=== PATIENT | female | born 1985 | race African-American/Black ===

== ENCOUNTER 2017-03-11 12:28 | Inpatient (IN) ==
[2017-03-11] MEDS: TORADOL IV SCH ×2 (16:45→23:43)
[2017-03-11 17:21] LABS: MANUAL DIFF NEEDED? NO
[2017-03-11 17:40] LABS: BASO% 0.1 % (0.0-0.8); EOS# 0.46 X1000 (0.0-0.7); EOS% 6.6 % (0.0-10.0); HEMATOCRIT 35.5 % (37.0-47.0); HEMOGLOBIN 11.3 g/dL (12.0-16.0); LYMPH# 2.08 X1000 (1.2-3.4); LYMPH% 30.1 % (20.5-51.1); MCH 27.8 PG (27-31); MCHC 31.8 g/dL (33-37); MCV 87.2 FL (81-99); MONO# 0.38 X1000 (0.11-0.59); MONO% 5.5 % (1.7-9.3); MPV 11.1 FL (7.4-10.4); NEUT% 57.7 % (42.2-75.2); PLT 286 X1000 (130-400); RBC 4.07 XMIL (4.2-5.4)
[2017-03-11 17:50] LABS: AGAP 6; ALBUMIN 3.6 g/dL (3.5-5.0); ALKALINE PHOSPHATASE 63 U/L (32-104); BUN 10 mg/dL (8-22); CALCIUM 9.3 mg/dL (8.8-10.2); CHLORIDE 104 mmol/L (98-107); COSMO 280; GOT 16 U/L (10-30); GPT 8 U/L (10-36); POTASSIUM 3.8 mmol/L (3.5-5.1); SODIUM 141 mmol/L (136-145); TCO2 31 mmol/L (25-35); TOTAL BILIRUBIN 0.24 mg/dL (0.20-1.00)
[2017-03-11 18:48] LABS: SED RATE 29 mm/hr (0-20)
[2017-03-11] MEDS ORDERED: BENADRYL IV PRN (19:58)
[2017-03-11] MEDS ORDERED: SOLU-MEDROL IV ONE (19:58)
[2017-03-11] MEDS ORDERED: HEPARIN 25,000 UNITS/D5W 25,000 UNIT/250 ML IV.SOLN IV SCH (20:00)
[2017-03-11] MEDS ORDERED: XARELTO PO SCH (20:00)
[2017-03-11] MEDS: PROTONIX IV SCH (20:57)
[2017-03-11] MEDS ORDERED: SODIUM CHLORIDE 0.9% INJ SCH (21:00)
[2017-03-11] MEDS ORDERED: HEPARIN IV ONE (23:21)
--- NOTE | 2017-03-12 00:58 | HISTORY AND PHYSICAL ---
CHIEF COMPLAINT: Chest pain, shortness of breath, losing hair, joint pains, whelps on the skin, swelling of the right calf 3 weeks ago. HISTORY OF PRESENT ILLNESS: She is a 31-year-old pleasant female, employee of the hospital, who was evaluated 3 weeks ago with right leg swelling with positive D-dimer. Outpatient venous Doppler at [facility] diagnosed a DVT. Patient was started on Xarelto. Since then, she was developing these symptoms. She was seen by Dr. Mcfadden. In my office, she is short of breath. Chest pain reproducible. Diffuse welts, consistent with urticarial lesions. All the joints are hurting, and calf is tender. These symptoms pretty much started after Xarelto. Basically, admitted to the hospital for rule out PE, rule out connective tissue disease, workup for thrombophilia, as well as these allergic urticarial lesions. As a result, a hospital admission was warranted. PAST MEDICAL HISTORY: 1. DVT in the right leg. 2. Alopecia. PAST SURGICAL HISTORY: . MEDICINES: Xarelto 15 twice a day. ALLERGIES: Not known. SOCIAL HISTORY: . One kid. Working in [employer]. Lives in [place]. Smoking half a pack a day. No alcohol. No drug abuse. FAMILY HISTORY: Father is 60 years old, in good health. Mother had blastomycosis. Siblings are pretty healthy. EYEGLASS FITTER HISTORY: 1, para 1. Last menstrual period 03/10/2017. REVIEW OF SYSTEMS: HEENT: Losing hair on the scalp. No oral lesions. No earache. Neck: No goiter. No lymphadenopathy. No bruit. Cardiopulmonary: Chest pain, shortness of breath. No PND. No orthopnea. Gastrointestinal: No GI gastrointestinal symptoms, nausea, vomiting. Genitourinary: No history of hesitancy, frequency. Extremities: Right leg swelling and joint pains. Skin: Rashes described, welts. Neurologic: No focal symptoms or weakness. PHYSICAL EXAMINATION: VITAL SIGNS: Afebrile. Vitals are stable. 5 feet 4, 170 pounds. Pulse oximetry 100% on room air. HEENT: Atraumatic, normocephalic. Minimal hair loss on the back of the neck. Thinning of the hair on the scalp. TMs are normal. Nose and throat within normal limits. Oral cavity is no lesions. Lids are normal. NECK: Supple. No lymphadenopathy. No goiter. CHEST: Bilateral air entry. HEART: Sounds are regular. The pain is reproducible on the left side of the chest. BREAST: Exam deferred. ABDOMEN: Belly is soft, nontender. Good bowel sounds. EXTREMITIES: Right leg is swollen. Joints are slightly inflamed and swollen hands in the diffuse. SKIN: Diffuse welts, consistent with urticaria. NEUROLOGIC: Nonfocal. INVESTIGATIONS: CBC: White cell count 6.9, hematocrit 35, platelets 286,000. Sedimentation rate 29. D-dimer 2.58. SMA-7 normal. Uric acid is normal. Troponin is normal. ProBNP is normal. CRP is high. B12 is normal. ASSESSMENT: A 31-year-old female, admitted to the hospital with a deep venous thrombosis in the right leg. After starting Xarelto, started having these joint pains, alopecia, urticarial lesions. PLAN: 1. Thrombophilia workup, as per Dr. Mcfadden. Rule out connective tissue diseases. 2. Follow up on anti-HERON panel. 3. Urticarial lesions. Questionable allergic reaction to Xarelto. We will discontinue. We will start on IV heparin. In the meantime, we will give IV steroids, Tylenol, and GI prophylaxis with IV Protonix. 4. Atypical chest pain, mostly musculoskeletal. We will get any EKG, chest x- ray, repeat the cardiac enzymes in the morning. 5. Discussed with the patient the plan of care. Also, will get the reports from [facility]. cc: Alejandro Norwood MD MTDD
[2017-03-12] MEDS: TORADOL IV SCH ×4 (05:02→21:28)
[2017-03-12] MEDS: SOLU-MEDROL IV SCH ×3 (05:02→21:28)
--- NOTE | 2017-03-12 06:48 | EKG Report ---
Test Performed on : 03/12/2017 06:07:52 AM Test Reason : cp Blood Pressure : / mmHG Vent. Rate : 070 BPM Atrial Rate : 070 BPM P-R Int : 146 ms QRS Dur : 068 ms QT Int : 394 ms P-R-T Axes : 080 079 066 degrees QTc Int : 425 ms Normal sinus rhythm. with sinus arrhythmia. Early repolarization Normal ECG No previous ECGs available Confirmed by Alberto WILSON, Dave Yang ([id number]) on 03/12/2017 11:39:23 AM
--- NOTE | 2017-03-12 07:36 | Diag Imaging Result Doc PS360 ---
EXAM: CHEST-2 VIEWS HISTORY: hypoxia TECHNIQUE: COMPARISON: 08/05/2013 FINDINGS: The lungs are well expanded. The heart is not enlarged. The vessels are not distended. There are no infiltrates. No pleural effusions. IMPRESSION: No acute abnormality. Electronically signed by Casey Sal 03/12/2017 7:33 AM
[2017-03-12] MEDS ORDERED: HEPARIN IV PRN (08:30)
--- NOTE | 2017-03-12 09:06 | PROGRESS NOTE ---
DATE: 03/12/2017 SUBJECTIVE: The patient's chest pain is improved. No shortness of breath. Skin rashes, urticarial lesions improving. Joint pains are less painful. REVIEW OF SYSTEMS: Otherwise, none reported. PHYSICAL EXAMINATION: Vital Signs: She is afebrile. Vitals are stable. HEENT Examination: Within normal limits. Chest: Clear. Cardiovascular: Heart sounds are regular. Pain is decreased and on the left side of the chest. Urticarial lesions are gone. Right leg is slightly swollen, nonfocal exam. INVESTIGATIONS: Cardiac enzymes were negative. RA factor is negative. Chest x-ray was stable. EKG normal sinus, nothing acute. ASSESSMENT AND PLAN: 1. Chest pain. Costochondritis. Continue NSAIDs. 2. Urticaria, probably from Xarelto based on the history. Continue on IV steroids. 3. Gastrointestinal prophylaxis with IV Protonix. 4. Right leg deep venous thrombosis. Thrombophilia workup is pending. Rule out connective should tissue diseases. On IV heparin. We will change to the Eliquis and we will followup on the labs. LEVEL OF DOCUMENTATION: Was 25 minutes. cc: Alejandro Norwood MD
[2017-03-12] MEDS ORDERED: HEPARIN 25,000 UNITS/D5W 25,000 UNIT/250 ML IV.SOLN IV SCH ×3 (09:18→21:52)
[2017-03-12 11:09] LABS: HEPATITIS PROFILE ACUTE SEE COMMENTS
[2017-03-12] MEDS: PROTONIX IV SCH (21:28)
[2017-03-12] MEDS ORDERED: HEPARIN IV ONE (21:50)
[2017-03-13] MEDS: TORADOL IV SCH (03:33)
[2017-03-13] MEDS: SOLU-MEDROL IV SCH (03:33)
--- NOTE | 2017-03-13 06:39 | Extremity Venous Study ---
PROCEDURE NAME: Venous U/S Right Leg - 03/11/2017 STUDY: Right lower extremity venous duplex study. REFERRING PHYSICIAN: Mirta Norwood MD READING PHYSICIAN: Arnulfo Whitfield MD SHOE CEMENTER: Ronaldo INDICATION: History of DVT in the right leg and there is right leg pain. FINDINGS: There is chronic thrombosis involving the right posterior tibial and peroneal veins. The common femoral, deep femoral, superficial femoral, greater saphenous and popliteal veins appear to be patent and compressible and without thrombus. INTERPRETATION: There is chronic deep vein thrombosis involving the right posterior tibial and peroneal veins. cc: MD Alejandro Carter MD
[2017-03-13] MEDS ORDERED: HEPARIN 25,000 UNITS/D5W 25,000 UNIT/250 ML IV.SOLN IV SCH (07:50)
[2017-03-13 08:06] VITALS: BP 140/72
[2017-03-13 08:39] LABS: URINE MICRO REVIEW NEEDED? NO; URINE SOURCE VOIDED
[2017-03-13 08:49] LABS: BILIRUBIN URINE NEGATIVE (NEGATIVE); BLOOD URINE MODERATE (NEGATIVE); COLOR YELLOW; GLUCOSE URINE NEGATIVE (NEGATIVE); LEUKOCYTES URINE NEGATIVE (NEGATIVE); NITRITE URINE NEGATIVE (NEGATIVE); PH URINE 6.5; PROTEIN URINE 50 mg/dL (NEGATIVE); SP GRAVITY URINE 1.036; TURBIDITY URINE CLEAR (CLEAR); UROBILINOGEN URINE NORMAL (NORMAL)
[2017-03-13 08:50] LABS: UR EPITHELIAL CELLS <10 /HPF (<10); URINE BACTERIA NEGATIVE /HPF; URINE RBC <10 /HPF (<10); URINE WBC <10 /HPF (<10)
--- NOTE | 2017-03-15 10:30 | DISCHARGE SUMMARY ---
ADMISSION DATE: 03/11/2017 DISCHARGE DATE: 03/13/2017 DISCHARGING DIAGNOSIS: Chronic right leg deep venous thrombosis, distal popliteal vein. SECONDARY DIAGNOSES: 1. Alopecia, etiology to be determined. 2. Slightly positive SSA antibody. 3. Urticaria, possibly due to Xarelto. BRIEF HISTORY: Please see the H and P that was done on 03/11/2017. In brief, she is a 31-year- old, pleasant, female working at [employer]. She presented to the hospital after evaluation in my office with chest pain, shortness of breath, hives, and also chronic right DVT diagnosed 3 weeks ago in [facility]. HOSPITAL COURSE: Patient was evaluated for thrombophilia workup by Dr. Mcfadden. Basically, hypercoagulable state as well as connective tissue disease workup. She is telling me that she is developing these hives ever since she has been taking Xarelto. She has diffuse urticarial lesions all over the body. It has been itching. Further workup, slightly elevated sedimentation rate and CRP. Patient was given IV Benadryl, intravenous Pepcid, and IV steroids. These symptoms were much improved. As a part of the chest pain, EKG is normal, cardiac enzymes were normal. This is probably musculoskeletal pain. The rest of the hospital course was uneventful. I believe she allergies to Xarelto. LABORATORIES: CBC: White cell count 6.9, hematocrit 35, platelets 286,000. D- dimer was positive. SMA 7 is normal. LFTs and cardiac enzymes were normal. B12 is normal. Urinalysis is clear. RA factor, CCP antibody is negative. Hepatitis panel was negative. Anti MARCOS panel is slightly positive for SSA. Rest of the thrombophilia workup was negative. Chronic deep vein thrombosis involving the right posterior tibial and peroneal veins. Chest x-ray was stable. DISCHARGE INSTRUCTIONS: 1. Discontinue on Xarelto and Eliquis 5 mg daily, Pepcid 40 daily, hydroxyzine 10 p.o. b.i.d., Medrol Dosepak. 2. We will discuss with Dr. Mcfadden about connective tissue diseases and thrombophilia workup. Follow up in the office in 10 days. cc: MD Grayson Zimmer MD Allen J. Schmidt, MD MTDD
== END 2017-03-13 11:29 | disposition home or self-care (01) ==
LOC: DIRADM 12:28 → 3N 14:06
PROVIDERS: ADMIT Internal Medicine; ATTEND Internal Medicine